=== PATIENT | female | born 1960 | race Caucasian/White ===

== ENCOUNTER → 2016-05-18 | Outpatient (CLI) | payer OTHER ==
--- NOTE | 2016-05-18 16:41 | DI ---
XR FOOT COMPLETE MIN 3VW WB,05/18/2016 3:24 PM: Clinical History: Right foot pain Previous Exam: June 25, 2012 Findings: 3 weightbearing views of the right foot are obtained, and demonstrate anatomic alignment without frac tures. The surrounding soft tissues are unremarkable. Impression: Normal right foot.
== END ==
LOC: RAD 15:20
PROVIDERS: ATTEND Physician Assistant Surgical
DX: M79.671 Pain in right foot (principal)
CPT/HCPCS: 73630